=== PATIENT | male | born 1955 | race Caucasian/White ===

== ENCOUNTER 2019-01-03 07:28 | Day surgery (SDC) | payer MEDICARE, OTHER ==
[~2019-01-03] VITALS: Ht 182.9 cm; Wt 98.4 kg
[~2019-01-03 07:28] MED LIST: ASPIRIN325 MG PO; IRON27 MG PO; JANUMET 50-1,01 EACH PO; LEVEMIR100 UNIT/1 SQ; LISINOPRIL40 MG PO; LOVAZA1 GM PO; NORCO 10-325 T1 EACH PO; NOVOLOG100 UNITS/ IV; OXYCODONE HCL10 MG PO; SIMVASTATIN40 MG PO; TOPROL XL50 MG PO; TRICOR145 MG PO; VITAMIN D2000 UNI1 PO
[2019-01-03] MEDS ORDERED: DAILY MULTIPLE1 EACH PO (07:50)
[2019-01-03] MEDS ORDERED: B COMPLEX # 11 EACH PO (07:51)
[2019-01-03] MEDS ORDERED: GLUCOPHAGE1000 MG PO (07:51)
[2019-01-03] MEDS ORDERED: VITAMIN C100 MG PO (07:51)
[2019-01-03] MEDS ORDERED: HYDROCHLOROTHIA25 MG PO (07:52)
[2019-01-03] MEDS ORDERED: LIPITOR40 MG PO (07:52)
[2019-01-03] MEDS ORDERED: COZAAR100 MG PO (07:52)
[2019-01-03] MEDS ORDERED: TOUJEO SOL300 UNIT/1 SUB-Q (07:53)
[2019-01-03] MEDS ORDERED: TRULICITY1.5 MG/0.5 SUB-Q (07:53)
--- NOTE | 2019-01-03 10:01 | NUR ---
01/03/19 1001 Candice Glass 1000 PATIENT ARRIVES TO PACU AWAKE OFF/ON. DENIES PAIN OR NAUSEA. RESP EVEN AND UNLABORED, ROOM AIR SATS >95%.
--- NOTE | 2019-01-04 07:55 | OR ---
[facility] [address], [place] [address] Signed DATE OF OPERATION: 01/03/2019 SURGEON: Catherine Soriano MD PREOPERATIVE DIAGNOSES: 1. Guaiac-positive stool. 2. Possible colon cancer in his paternal uncle. POSTOPERATIVE DIAGNOSES: 1. 4-6 mm polyps at 98, 92, 90, 71, 70, 64, 40, 38, 29, 22, 18 cm and mid rectum. 2. Flattened prostate (question scar on the left). PROCEDURE: Colonoscopy, snare polypectomy, and hot biopsy. ESTIMATED BLOOD LOSS: None. INDICATIONS: Vidal is a 63-year-old gentleman, who came for his initial colonoscopy. He recently had guaiac-positive stool. Prior to this, he has declined colorectal screening. In addition, he had prostate cancer and prostate surgery back in 2011. He really has no lower GI complaints. He thinks his paternal uncle may have colon cancer, he is not sure. In the office, I gave him a pamphlet on colorectal polyps and cancer as well as colonoscopy. He understands fully that colon polyps become colon cancer. We also reviewed the written instructions for bowel prep line by line. He understands the nature of the test along with its risks including, but not limited to gas bloating, crampy abdominal pain, bleeding, perforation, requiring surgery, and missed diagnosis. He also understands the need for IV conscious sedation. He had expressed understanding and wished to proceed. PROCEDURE NOTE: Vidal was taken into our endoscopy suite and placed in the left lateral decubitus position. He was given IV sedation with 4 mg of Versed and 100 mcg of fentanyl. A digital rectal exam was performed and sure enough it feels like his prostate now surgically absent. There was a little bit of scar or a slight nodule on the left inferior side. I do not know whether that is new or persistent. The adult colonoscope was introduced and advanced all the way around into the cecum under direct visualization of camera without difficulty. His prep was quite excellent. The scope was slowly withdrawn. The above-mentioned polyps were removed with the help of a hot biopsy Electronically Signed By: CATHERINE SORIANO MD 01/04/19 0755 PATIENT NAME: STATON,VIDAL Stephenson OPERATIVE REPORT DATE OF : 51 REPORT #: [id number] PHYSICIAN: CATHERINE SORIANO MD PCP: ROSALIE STATON PA-C REPORT IS CONFIDENTIAL AND NOT TO BE RELEASED WITHOUT AUTHORIZATION [facility] [address] [place], [place] [address] Signed forceps. We did use the snare just above the rectum. The scope had been retroflexed in the rectum and really nothing in the way of internal hemorrhoids. It may be just a tiny internal anal skin tag. After this, the gas was suctioned out and colonoscope removed. Vidal tolerated the procedure quite well. RECOMMENDATIONS: I will see Vidal back in my office in 7 to 14 days to review his results and his previous prostate surgery. Catherine Soriano MD ALB/MARLENEL /[id number] cc: MD Rosalie Parsons PA-C Copies: CATHERINE SORIANO MD, CHLOE K PA-C ~ Electronically Signed By: CATHERINE SORIANO MD 01/04/19 0755 PATIENT NAME: VIDAL STATON OPERATIVE REPORT DATE OF : 51 REPORT #: [id number] PHYSICIAN: CATHERINE SORIANO MD PCP: ROSALIE STATON PA-C REPORT IS CONFIDENTIAL AND NOT TO BE RELEASED WITHOUT AUTHORIZATION
== END 2019-01-03 10:30 | disposition home or self-care (01) ==
LOC: DS 07:28 → OPS 07:28 → DS 09:00 → OPS 10:30
PROVIDERS: Colon & Rectal Surgery
PROC: 0DBP8ZZ Excision of Rectum, Via Natural or Artificial Opening Endoscopic (ICD-10-PCS; 2019-01-03)
PROC: 0DBE8ZZ Excision of Large Intestine, Via Natural or Artificial Opening Endoscopic (ICD-10-PCS; principal; 2019-01-03 09:00)
DX: D12.6 Benign neoplasm of colon, unspecified (principal); K62.1 Rectal polyp; K63.5 Polyp of colon; E11.9 Type 2 diabetes mellitus without complications; I10 Essential (primary) hypertension; J45.909 Unspecified asthma, uncomplicated; E78.5 Hyperlipidemia, unspecified; F17.210 Nicotine dependence, cigarettes, uncomplicated; Z88.0 Allergy status to penicillin; Z79.899 Other long term (current) drug therapy; Z79.82 Long term (current) use of aspirin; E55.9 Vitamin D deficiency, unspecified; Z79.4 Long term (current) use of insulin
CPT/HCPCS: 88305; 99153; G0500; J2250; J3010; J7120